=== PATIENT | male | born 1975 | race Caucasian/White ===

== ENCOUNTER 2017-03-20 17:52 | Emergency (ER) | payer OTHER ==
[~2017-03-20 17:52] MED LIST: HUMULIN R100 UNITS/ IM; LANTUS (UNITS)1 UNIT SQ; LEXAPRO20 MG PO; OXYIR5 MG PO
[2017-03-20 18:06] LABS: EOSINOPHIL (%) 1.9 % (0-5); EOSINOPHIL COUNT 0.1 K/uL (0-0.3); IMMATURE GRANULOCYTE (%) 0.2 % (0.0-0.7); INSTRUMENT ABS NEUTROPHIL CT 3.5 K/uL; LYMPHOCYTE COUNT 1.8 K/uL (1.0-2.8); MCH 31.9 PG (29.0-34.0); MCHC 32.2 G/DL (30.0-36.0); MCV 98.9 FL (86-99); MEAN PLAT.VOLUME 11.4 uM^3 (9.0-12.4); MONOCYTE (%) 5.9 % (3-12); MONOCYTE COUNT 0.3 K/uL (0-0.8); NEUTROPHIL (%) 60.3 % (45-76); NEUTROPHIL COUNT 3.5 K/uL (1.8-6.4); PLATELET COUNT 142 K/uL (156-360); RBC DIS.WIDTH-CV 15.7 % (11.8-14.6); RBC DIS.WIDTH-SD 57.4 % (39-53); RED BLOOD COUNT 4.55 M/uL (4.00-5.50); WHITE BLOOD COUNT 5.7 K/uL (4.1-10.2)
[2017-03-20 18:15] LABS: AMYLASE 62 IU/L (1-118); CHLORIDE 101 mEq/L (99-109); POTASSIUM 4.6 mEq/L (3.7-5.4); SODIUM 137 mEq/L (136-147)
[2017-03-20 18:16] LABS: GLUCOSE 117 mg/dL (70-99)
[2017-03-20 18:18] LABS: ANION GAP 12 MEQ/L (2-14)
[2017-03-20 18:20] LABS: GFR ESTIMATE (CALCULATED) 47 mL/min/ (58.99-99999); SERUM ETHYL ALCOHOL < 10 mg/dL
[2017-03-20 18:21] LABS: UREA NITROGEN (BUN) 29 mg/dL (9-23)
[2017-03-20 20:07] LABS: LIPASE < 3.0 U/L (1.0-51.0)
== END 2017-03-20 21:05 | disposition home or self-care (01) ==
LOC: TRA 17:52
PROVIDERS: Emergency Medicine Emergency Medical Services
DX: S20.212A Contusion of left front wall of thorax, initial encounter (principal); S50.01XA Contusion of right elbow, initial encounter; S40.022A Contusion of left upper arm, initial encounter; S70.01XA Contusion of right hip, initial encounter; S50.312A Abrasion of left elbow, initial encounter; S50.311A Abrasion of right elbow, initial encounter; S40.812A Abrasion of left upper arm, initial encounter; S30.811A Abrasion of abdominal wall, initial encounter; M54.2 Cervicalgia; V88.7XXA Person injured in collision between other specified motor vehicle, nontraffic, initial encounter; Y92.009 Unspecified place in unspecified non-institutional (private) residence as the place of occurrence of the external cause; Z95.0 Presence of cardiac pacemaker; E11.9 Type 2 diabetes mellitus without complications; Z79.4 Long term (current) use of insulin; N20.0 Calculus of kidney
CPT/HCPCS: 71010; 72040; 73070; 74176; 80048; 81003; 82150; 83690; 85025; 86850; 86900; 86901; G0480